=== PATIENT | female | born 1960 | race Caucasian/White ===

== ENCOUNTER 2019-03-08 19:01 | Emergency (ER) | payer BC ==
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
[2019-03-08] MEDS: methylPREDNISolone SOD SUCC 125 MG/2 ML VIAL IM ONE (19:47)
--- NOTE | 2019-03-08 19:57 | Diagnostic Imaging Report ---
CRISTOBAL MENDEZ [facility] [address] [facility].[address] [address] Report Submission Date: Mar 08, 2019 7:51:14 PM CDT Patient Study Name: MAGDALENO EASLEY Date: Mar 08, 2019 7:26:05 PM CDT Modality Type: DX Gender: F Description: WRIST 3 VIEWS OR MORE : 60 Institution: [facility] Physician: CRISTOBAL MENDEZ Three views right wrist Clinical history: Injury. Findings: Examination right wrist in palmar, lateral and oblique views demonstrates degenerative changes with narrowing of the 1st carpometacarpal joint and mild narrowing of the radiocarpal joint. There is no evident fracture and no lytic or blastic lesion. Impression: 1. Degenerative changes that are worst in the 1st carpometacarpal joint. 2. No fracture. Electronically signed on Mar 08, 2019 7:51:14 PM CDT by: Michael VALENZUELA
[2019-03-08 21:38] VITALS: BP 148/82
== END 2019-03-08 20:20 | disposition home or self-care (01) ==
LOC: ED 19:01
DX: M25.531 Pain in right wrist (principal)
CPT/HCPCS: 73110; 96372; 99284; J2930

== ENCOUNTER 2019-04-26 17:50 | Emergency (ER) | payer BC ==
[2019-04-26 18:02] VITALS: BP 191/69
--- NOTE | 2019-04-26 18:24 | ED Physician Documentation ---
Sore Throat/Dental Pain - HISTORIAN Historian: patient - HPI Stated Complaint: sore throat and fever Chief Complaint: Sore Throat Onset: days ago (6) Associated Symptoms: fever (no OTC meds taken no current fever ) Further Comments: yes (She has had a sore throat x 6 days with fever she has not taken any OTC meds. She has a cough. No sick contacts. She has no rash) - ROS CONST: no problems MS/SKIN/LYMPH: denies: rash - PAST HX Past History: none Immunizations: UTD Allergies/Adverse Reactions: Allergies Allergy/AdvReac Type Severity Reaction Status Date / Time No Known Allergies Allergy Verified 04/26/19 18:03 Home Medications: Ambulatory Orders Medication Instructions Recorded NK 04/26/19 - SOCIAL HX Smoking History: non-smoker Alcohol Use: none Drug Use: none - FAMILY HX Family History: No - VITAL SIGNS Vital Signs: Vital Signs Temp Pulse Resp BP Pulse Ox 98.1 F 92 H 19 191/69 97 04/26/19 17:59 04/26/19 17:59 04/26/19 17:59 04/26/19 17:59 04/26/19 17:59 - REVIEWED ASSESSMENTS Nursing Assessment Reviewed: Yes Vitals Reviewed: Yes ED Results Lab/Radiology - Orders Orders: ED Orders Category Date Time Status Rapid Strep [GRP A STREP SCREEN] Stat Lab 04/26/19 Ordered Sore throat Physical Exam - EXAM General Appearance: no acute distress, alert Head/Neck: head nml inspection. No: pain over sinuses Eyes: eyes nml inspection Mouth/Throat: lips nml, gums nml, pharynx nml, voice nml, no drooling, no air way problems Ear/Nose: nml inspection Respiratory: no resp. distress, breath sounds nml CVS: reg. rate & rhythm Abdomen: soft Skin: warm/dry Neuro/Psych: oriented x3 Discharge Clincal Impression: Sore throat (viral) Referrals: Primary Doctor,No [Primary Care Provider] - 2 Days Comments: 1. OTC meds as directed as needed for pain or other symptoms 2. See PCP in 2-4 days 3. Return to ER for any increased concerns Condition: Stable Disposition: 01 HOME, SELF-CARE Decision to Admit: NO Date of Decison to Admit: 04/26/19 Decision Time: 18:24
== END 2019-04-26 18:31 | disposition home or self-care (01) ==
LOC: ED 17:50
DX: J02.8 Acute pharyngitis due to other specified organisms (principal)
CPT/HCPCS: 87880; 99281; 99282